=== PATIENT | female | born 1965 | race Caucasian/White ===

== ENCOUNTER 2023-09-21 06:07 | Day surgery (SDC) | payer OTHER, SELFPAY ==
[2023-09-07 07:26] VITALS: BMI 24.5
[2023-09-21] VITALS (9 sets, daily range): BP systolic 113–138; BP diastolic 70–88; BMI 24.5
[2023-09-21 06:25] LABS: Glucose - Point of Care 96 mg/dl (70-99)
[2023-09-21] MEDS: CELEBREX 200 MG PO (06:26)
[2023-09-21] MEDS: NORMOSOL-R 1000 IV (06:26)
[2023-09-21] MEDS: TYLENOL 1000 MG PO (06:26)
[2023-09-21 08:59] LABS: Glucose - Point of Care 106 mg/dl (70-99)
== END 2023-09-21 09:49 | disposition home or self-care (01) ==
LOC: SDS 06:07
PROVIDERS: ATTENDING PHYSICIAN Orthopaedic Surgery Hand Surgery; FAMILY PHYSICIAN Nurse Practitioner Family
DX: M75.102 Unspecified rotator cuff tear or rupture of left shoulder, not specified as traumatic (principal); M75.42 Impingement syndrome of left shoulder
CPT/HCPCS: 29827; 29826; 36415; 82962; 93005; C1713

== ENCOUNTER → 2024-05-24 15:45 | Outpatient (REF) | payer OTHER, SELFPAY | LOC: WDC 15:45 | PROVIDERS: ATTENDING PHYSICIAN Nurse Practitioner Family | DX: Z12.31 Encounter for screening mammogram for malignant neoplasm of breast (principal) | CPT/HCPCS: 77063; 77067 ==

== ENCOUNTER → 2024-05-30 09:09 | Outpatient (REF) | payer OTHER, SELFPAY | LOC: HWRAD 09:09 | PROVIDERS: ATTENDING PHYSICIAN Nurse Practitioner Family | DX: Z87.891 Personal history of nicotine dependence (principal) | CPT/HCPCS: 71271 ==

== ENCOUNTER → 2025-01-05 09:15 | Outpatient (REF) | payer OTHER, SELFPAY | LOC: RAD 09:15 | PROVIDERS: ATTENDING PHYSICIAN Nurse Practitioner Family | DX: R10.13 Epigastric pain (principal) | CPT/HCPCS: 74160; Q9967 ==